=== PATIENT | female | born 1980 | race Two or more races ===

== ENCOUNTER 2020-01-26 14:09 | Outpatient (CLI) | payer OTHER | END 2020-01-26 14:22 | disposition home or self-care (01) | LOC: NUCLEAR 14:09 | PROVIDERS: ATTEND Internal Medicine Sports Medicine | DX: C73 Malignant neoplasm of thyroid gland (principal); E89.0 Postprocedural hypothyroidism | CPT/HCPCS: 79005; A9517 ==

== ENCOUNTER 2020-01-30 10:38 | Outpatient (CLI) | payer OTHER | END 2020-01-30 10:43 | disposition home or self-care (01) | LOC: NUCLEAR 10:38 | PROVIDERS: ATTEND Internal Medicine Sports Medicine | DX: C73 Malignant neoplasm of thyroid gland (principal); E89.0 Postprocedural hypothyroidism ==

== ENCOUNTER 2020-11-08 12:51 | Outpatient (CLI) | payer OTHER | END 2020-11-08 12:56 | disposition home or self-care (01) | LOC: NUCLEAR 12:51 | PROVIDERS: ATTEND Internal Medicine Sports Medicine | DX: C73 Malignant neoplasm of thyroid gland (principal) | CPT/HCPCS: 78018; 78020; A9528 ==

== ENCOUNTER → 2020-11-27 | Outpatient (CLI) | payer OTHER | END | disposition home or self-care (01) | LOC: NUCLEAR 08:24 | DX: C73 Malignant neoplasm of thyroid gland (principal); E89.0 Postprocedural hypothyroidism | CPT/HCPCS: 78816; A9552 ==

== ENCOUNTER 2021-04-10 10:40 | Outpatient (CLI) | payer OTHER | END 2021-04-10 10:49 | disposition home or self-care (01) | LOC: SONOGRAMA 10:40 | PROVIDERS: ATTEND Pathology Anatomic Pathology & Clinical Pathology | DX: C73 Malignant neoplasm of thyroid gland (principal) ==